=== PATIENT | male | born 1995 | race Hispanic/Latino ===

== ENCOUNTER 2017-12-07 19:44 | Emergency (ER) | payer SELFPAY ==
[2017-12-07] MEDS ORDERED: TETANUS/DIPHTHERIA TOXOID [ADULT] 0.5 ML VIAL IM ONE (20:10)
[2017-12-07] MEDS ORDERED: IBUPROFEN 600 MG TABLET ONE (20:31)
== END 2017-12-07 20:42 | disposition home or self-care (01) ==
LOC: EDH 19:44
DX: S80.212A Abrasion, left knee, initial encounter (principal); X58.XXXA Exposure to other specified factors, initial encounter; Y93.66 Activity, soccer; Y92.89 Other specified places as the place of occurrence of the external cause; Y99.8 Other external cause status
CPT/HCPCS: 29505; 73562; 90471; 90714

== ENCOUNTER 2018-02-21 17:12 | Emergency (ER) | payer SELFPAY ==
[2018-02-21 17:33] LABS: APPEARANCE,URINE Clear (CLEAR); BILIRUBIN,URINE Negative (NEGATIVE); COLOR,URINE Yellow (YELLOW); GLUCOSE, URINE (UA) Negative (NEGATIVE); KETONES,URINE Negative (NEGATIVE); LEUKOCYTE ESTERASE ,URINE Negative (NEGATIVE); NITRATE,URINE Negative (NEGATIVE); OCCULT BLOOD,URINE Negative (NEGATIVE); PROTEIN,URINE Negative (NEGATIVE)
== END 2018-02-21 18:10 | disposition home or self-care (01) ==
LOC: EDH 17:12
DX: N50.9 Disorder of male genital organs, unspecified (principal)
CPT/HCPCS: 81003; 87486; 87797

== ENCOUNTER 2018-03-06 01:01 | Emergency (ER) | payer SELFPAY | END 2018-03-06 01:27 | disposition home or self-care (01) | LOC: EDH 01:01 | DX: M77.9 Enthesopathy, unspecified (principal) | CPT/HCPCS: 99281 ==

== ENCOUNTER 2018-12-03 23:12 | Emergency (ER) | payer OTHER ==
[2018-12-03 23:39] LABS: APPEARANCE,URINE Clear (CLEAR); BILIRUBIN,URINE Negative (NEGATIVE); COLOR,URINE Yellow (YELLOW); GLUCOSE, URINE (UA) Negative (NEGATIVE); KETONES,URINE Trace mg/dL (NEGATIVE); LEUKOCYTE ESTERASE ,URINE Negative (NEGATIVE); NITRATE,URINE Negative (NEGATIVE); OCCULT BLOOD,URINE Negative (NEGATIVE); PH,URINE 5.5 (5.0-8.0); PROTEIN,URINE Negative (NEGATIVE)
[2018-12-04 00:16] LABS: BASOPHILS % (AUTO) 0.4 % (0.0-5.0); EOSINOPHILS % (AUTO) 1.1 % (0.0-8.0); HEMATOCRIT 39.9 % (42-54); MEAN CORPUSCULAR HEMOGLOBIN 28.3 pg (27.0-33.0); MEAN CORPUSCULAR HGB CONC 34.8 g/dL (32.0-36.0); MEAN CORPUSCULAR VOLUME 81.4 fL (80-100); MONOCYTES % (AUTO) 9.7 % (3.0-13.0); NEUTROPHILS % (AUTO) 74.8 % (40.0-77.0); PLATELET COUNT (AUTO) 170 K/uL (130-400); RED CELL DISTRIBUTION WIDTH 14.1 % (11.0-15.5)
[2018-12-04 00:22] LABS: CREATININE 0.9 mg/dL (0.5-1.5); POTASSIUM 3.7 mmol/L (3.5-5.1)
[2018-12-04 00:26] LABS: ALBUMIN 3.9 g/dL (3.5-5.0); BILIRUBIN,TOTAL 0.2 mg/dL (0.2-1.0); TOTAL PROTEIN, SERUM 7.9 g/dL (6.0-8.3)
[2018-12-04] MEDS ORDERED: HYOSCYAMINE SULFATE 0.125 MG TAB.SUBL SL ONE (00:44)
== END 2018-12-04 01:16 | disposition home or self-care (01) ==
LOC: EDH 23:12
DX: K29.00 Acute gastritis without bleeding (principal); R10.10 Upper abdominal pain, unspecified
CPT/HCPCS: 36415; 80053; 81003; 82150; 83690; 85025; 86677

== ENCOUNTER 2018-12-29 01:47 | Emergency (ER) | payer OTHER | END 2018-12-29 02:52 | disposition home or self-care (01) | LOC: EDH 01:47 | DX: R21 Rash and other nonspecific skin eruption (principal); L53.9 Erythematous condition, unspecified; Z77.098 Contact with and (suspected) exposure to other hazardous, chiefly nonmedicinal, chemicals ==

== ENCOUNTER 2019-04-11 18:57 | Emergency (ER) | payer OTHER ==
[2019-04-11] MEDS ORDERED: IBUPROFEN 600 MG TABLET ONE (19:10)
== END 2019-04-11 20:00 | disposition home or self-care (01) ==
LOC: EDH 18:57
DX: S83.8X2A Sprain of other specified parts of left knee, initial encounter (principal); W10.8XXA Fall (on) (from) other stairs and steps, initial encounter; Y93.89 Activity, other specified; Y92.098 Other place in other non-institutional residence as the place of occurrence of the external cause; Y99.8 Other external cause status
CPT/HCPCS: 73562

== ENCOUNTER 2019-09-27 23:51 | Emergency (ER) | payer OTHER ==
[2019-09-28] MEDS ORDERED: DEXAMETHASONE SOD PHOSPHATE 10MG/ML 1ML VIAL ONE (00:07)
[2019-09-28] MEDS ORDERED: DiphenhydrAMINE HCL 50 MG/ML VIAL ONE (00:07)
[2019-09-28] MEDS ORDERED: SODIUM CHLORIDE 0.9% 1000ML 1,000 ML IV ONE (00:08)
[2019-09-28] MEDS ORDERED: KETOROLAC TROMETHAMINE 30MG/ML ONE (00:08)
== END 2019-09-28 01:12 | disposition home or self-care (01) ==
LOC: EDH 23:51
DX: R51 Headache (principal)
CPT/HCPCS: 87804 ×2; 96374; 96375; 99284; J1100; J1200; J1885; J7030

== ENCOUNTER 2019-10-07 23:28 | Emergency (ER) | payer OTHER ==
[2019-10-08 00:25] LABS: APPEARANCE,URINE Clear (CLEAR); BILIRUBIN,URINE Negative (NEGATIVE); COLOR,URINE Yellow (YELLOW); GLUCOSE, URINE (UA) Negative (NEGATIVE); KETONES,URINE Negative (NEGATIVE); LEUKOCYTE ESTERASE ,URINE Negative (NEGATIVE); NITRATE,URINE Negative (NEGATIVE); OCCULT BLOOD,URINE Negative (NEGATIVE); PROTEIN,URINE Negative (NEGATIVE)
[2019-10-08] MEDS ORDERED: KETOROLAC TROMETHAMINE 60 MG/2 ML VIAL ONE (01:50)
[2019-10-08] MEDS ORDERED: CEFTRIAXONE SODIUM 500 MG VIAL ONE (01:50)
[2019-10-08] MEDS ORDERED: ONDANSETRON ODT 4 MG TAB ONE (01:51)
[2019-10-08] MEDS ORDERED: AZITHROMYCIN 250 MG TABLET PO ONE (01:51)
[2019-10-08] MEDS ORDERED: LIDOCAINE HCL 2% VISCOUS 15 ML UDCUP ONE (01:54)
== END 2019-10-08 02:55 | disposition home or self-care (01) ==
LOC: EDH 23:28
DX: N48.1 Balanitis (principal); Z11.3 Encounter for screening for infections with a predominantly sexual mode of transmission
CPT/HCPCS: 81003; 87486; 87797; 96372 ×2; 99284; J0696; J1885

== ENCOUNTER 2020-02-05 19:02 | Emergency (ER) | payer OTHER | END 2020-02-05 19:23 | disposition home or self-care (01) | LOC: EDH 19:02 | DX: M25.562 Pain in left knee (principal) | CPT/HCPCS: 99281 ==

== ENCOUNTER 2020-11-18 09:24 | Emergency (ER) | payer OTHER ==
[2020-11-18] MEDS ORDERED: PROCHLORPERAZINE EDISYLATE 10 MG/2 ML VIAL ONE (10:14)
[2020-11-18] MEDS ORDERED: DiphenhydrAMINE HCL 50 MG/ML VIAL ONE (10:15)
[2020-11-18] MEDS ORDERED: SODIUM CHLORIDE 0.9% 250 ML IV ONE (10:16)
== END 2020-11-18 11:19 | disposition home or self-care (01) ==
LOC: EDH 09:24
DX: G43.119 Migraine with aura, intractable, without status migrainosus (principal)
CPT/HCPCS: 96374; 96375; 99284; J0780; J1200; J7050

== ENCOUNTER 2020-12-29 00:54 | Emergency (ER) | payer OTHER ==
[2020-12-29] MEDS ORDERED: ACETAMINOPHEN EXTRA STRENGTH 500 MG TABLET ONE (01:49)
== END 2020-12-29 03:59 | disposition home or self-care (01) ==
LOC: EDH 00:54
DX: S93.505A Unspecified sprain of left lesser toe(s), initial encounter (principal); S90.122A Contusion of left lesser toe(s) without damage to nail, initial encounter; X58.XXXA Exposure to other specified factors, initial encounter; Y93.66 Activity, soccer; Y92.89 Other specified places as the place of occurrence of the external cause; Y99.8 Other external cause status
CPT/HCPCS: 73620

== ENCOUNTER 2021-01-03 17:20 | Emergency (ER) | payer OTHER | END 2021-01-03 18:05 | disposition home or self-care (01) | LOC: EDH 17:20 | DX: S93.505A Unspecified sprain of left lesser toe(s), initial encounter (principal); X58.XXXA Exposure to other specified factors, initial encounter; Y93.89 Activity, other specified; Y92.89 Other specified places as the place of occurrence of the external cause; Y99.8 Other external cause status | CPT/HCPCS: 73630 ==

== ENCOUNTER 2025-03-03 03:03 | Emergency (ER) | payer OTHER ==
[~2025-03-03] VITALS: Ht 170.2 cm; Wt 67.1 kg
--- NOTE | 2025-03-03 04:37 | ERN ---
ED Note History of Present Illness Stated Complaint: HEADACHE Chief Complaint: Headache Time Seen by MD: 03:25 Dictation: This is a 30-year-old male who presents to the emergency room with complaining of left-sided headache for the past few days. Started on 02/28 after he finished his work and came home. He also reports sinus congestion. No epistaxis. No lacrimation and the headache is very throbbing Allergies: Coded Allergies: No Known Allergies (Unverified Allergy, Unknown, 10/08/19) Past Medical History Past Medical History: No Pertinent History Surgical History: None RN Note Reviewed/Agreed w/PFSH: Yes Review of System Dictation Constitutional: Negative for fever,chills, and weight loss Eyes: Negative for injury, pain,redness, and discharge ENT: Negative for injury,pain or swelling severe left-sided headache Cardiovascular: Negative for chest pain, palpitations, and edema Respiratory: Negative for shortness of breath, cough, and wheezing, Abdomen/GI: Negative for abdominal pain, nausea, vomiting, diarrhea, and constipation Back: Negative for injury and pain : Negative for injury, bleeding and discharge MS/Extremity: Negative for injury and deformity Skin: Negative for rash, and discoloration Neuro: Negative for headache, weakness, numbness, tingling, and seizure Psych: Negative for suicide ideation, homicidal ideation, and hallucinations Initial Vital Sign VS Vital Signs Date Time Temp Pulse Resp B/P (MAP) Pulse Ox O2 Delivery O2 Flow Rate FiO2 03/03/25 03:05 97.0 61 16 129/76 100 Room Air Physical Exam Dictation General: awake, alert, NAD Head/Face: Normocephalic, atraumatic Eyes: PERRL, EOMI, vision at baseline ENT: oral cavity clear, TMs clear, no signs of infection Neck: Trachea midline, supple, no nuchal rigidity Cardiovascular: RRR, normal S1/S2, No MRGs, no JVD Respiratory: CTAB, no respiratory distress, No rales or wheezes Abdomen: Soft, non-tender, non-distended, normal bowel sounds, no guarding or rebound. Skin: Warm, dry, normal turgor, no rash MS/Extremity: Pulses equal, no cyanosis, neurovascular intact, FROM Neuro: COAx4, GCS 15, strength 5/5, CN 2-12 intact, normal cerebellar exam, normal gait, Psych: Normal behavior, mood, and affect normal Extremities-trace edema without any palpable cords, Homans sign is negative Results (Laboratory/Radiology) Labs Reviewed?: Yes ED Course ED Course Orders Procedure Category Date Status Time Ketorolac PHA 03/03/25 Complete Tromethamine 30mg/Ml 05:00 Ondansetron Odt 4mg PHA 03/03/25 Complete Tab (Zofran 4mg Odt) 05:00 Diphenhydramine Hcl PHA 03/03/25 Complete (Benadryl Inj) 05:00 Ct Head/Brain W/O CT 03/03/25 Taken Contrast 04:57 Current Medications Medications (Trade) Dose Ordered Sig/Anna Route PRN Reason Start Time Stop Time Status Last Admin Dose Admin Diphenhydramine HCl (BENAdryl INJ) 25 mg ONCE ONCE IM 03/03/25 05:00 03/03/25 05:01 DC 03/03/25 04:47 Ketorolac Tromethamine (toRADol) 30 mg ONCE ONCE IM 03/03/25 05:00 03/03/25 05:01 DC 03/03/25 04:47 Ondansetron HCl (zoFRAN 4MG ODT) 4 mg ONCE ONCE SL 03/03/25 05:00 03/03/25 05:01 DC 03/03/25 04:47 Vital Signs Date Time Temp Pulse Resp B/P (MAP) Pulse Ox O2 Delivery O2 Flow Rate FiO2 03/03/25 03:05 97.0 61 16 129/76 100 Room Air Medical Decision Making MDM MDM: Differential diagnosis: Vascular headache, sinus headache, tension headache, cluster headache, intracranial event Rationale: Tests considered and ordered secondary to shared decision making include: Previous outside records reviewed: Old ER visits. Risk of complication and/or morbidity or mortality of patient management: None Medications-Per medication reconciliation Need for hospitalization: Patient does not meet criteria for hospitalization. Need for emergency major/minor surgery: No There are no social concerns with this patient. Prescription drug management Prescriptions will include symptomatic care Patient's prior external medical records from other ER visits were reviewed by me as indicated. Prior testing and results from previous visits were reviewed. Prior tests were taken into account with medical decision making and resource utilization, independent historian/historians were used to obtain complete medical history. I independently interpreted the test that were performed, results were reviewed by me and considered findings on radiology if ordered. Medical management and examination interpretation discussions were had by me with other qualified healthcare professionals as indicated for the patient's care. Problem List Problem List: (1) Acute sinusitis (2) Left-sided headache (3) Tooth infection (4) Dental caries DX & DISP Disposition: Discharge Departure Impression: Primary Impression: Left-sided headache Additional Impressions: Tooth infection, Dental caries, Sinusitis, acute Condition: Stable Scripts Amoxicillin/Potassium Clav (Augmentin 500-125 Tablet) 500 Mg-125 Mg Tablet 1 TAB PO BID for 14 Days, #28 TAB 0 Refills Prov: MICHAEL STEVE MD 03/03/25 Additional Instructions: Patient and the caregiver have been informed of all the diagnostic tests and the imaging conducted during the today's visit to the emergency room and has verbalized understanding of the results I have personally reviewed and interpreted all diagnostic exams performed here in the ER today as well as the vital signs documented by the nursing staff. The patient is now being discharged to home and should follow up with the primary care physician or the specialist as directed by the ER staff. Follow-up with primary care provider in 1 to 2 days. Take medications as directed here in the emergency room. Okay to continue home medications unless otherwise discussed during your visit in the emergency room today. Return to your nearest emergency room if symptoms worsen or if there is no improvement. Call 911 if you need immediate assistance. Take Tylenol or Motrin [id number] as needed and if no contraindications are present. Increase oral hydration. A wound culture or urine culture was ordered here in the emergency room department please follow-up with primary care provider and advise them to get repeat ports from our facility. If you had any Eddie wrap/splints that were applied here, please do not remove them until you see your primary care or specialty. Referrals: SELF,REFERRAL (PCP) MICHAEL STEVE MD March 03, 2025 04:37
[2025-03-03] MEDS: ketOROlac 30MG VIAL (30MG/ML) IM ONE (04:47)
[2025-03-03] MEDS: DiphenhydrAMINE HCL 50 MG/ML VIAL IM ONE (04:47)
[2025-03-03] MEDS: ondanSETRON ODT 4MG TAB SL ONE (04:47)
[2025-03-03] MEDS ORDERED: AMOX-426 PO (06:33)
[2025-03-03 06:41] VITALS: BP 123/72; PULSE 64; RESP 18; TEMP 98; O2SAT 99
--- NOTE | 2025-03-03 08:44 | HMCIMG ---
Exam Type: CT HEAD/BRAIN W/O CONTRAST Clinical Information: severe left sided headache Comparison: None CT Dose Index (CTDI): 57.33 mGy Dose Length Product (DLP): 956.79 total mGy-cm Findings: The examination is unremarkable. Ordoñez-white matter junction is preserved. No intra or extra axial lesions or fluid collections are seen. Specifically, ordoñez and white matter are normal in signal characteristics with normal caliber of ventricles and periventricular cisterns with no evidence of intra or or extra-axial hemorrhage, lacunar infarct, or major territorial infarct, mass, or other abnormality. There are no infarcts. There are no hemorrhages. Periventricular white matter locations are preserved. The orbital contents and structures of the posterior fossa are intact. Impression: Normal CT of the head. This study was performed using dose reduction techniques to include automated exposure control and/or adjustment of the mA and/or kV according to patient size.
== END 2025-03-03 06:42 | disposition home or self-care (01) ==
LOC: EDH 03:03
DX: R51.9 Headache, unspecified (principal); K04.7 Periapical abscess without sinus; J01.90 Acute sinusitis, unspecified
CPT/HCPCS: 99285; 70450; 96372 ×2; J1885; J1200